=== PATIENT | male | born 1975 | race Caucasian/White ===

== ENCOUNTER 2016-10-26 09:28 | Outpatient (CLI) | payer OTHER | END 2016-10-26 09:29 | disposition home or self-care (01) | DX: G47.33 Obstructive sleep apnea (adult) (pediatric) (principal) ==

== ENCOUNTER 2016-10-30 22:00 | Outpatient (CLI) | payer OTHER | END 2016-10-30 22:01 | disposition home or self-care (01) | DX: G47.61 Periodic limb movement disorder (principal) ==

== ENCOUNTER 2016-12-28 09:11 | Outpatient (CLI) | payer OTHER | END 2016-12-28 09:12 | disposition home or self-care (01) | DX: G47.61 Periodic limb movement disorder (principal) ==